=== PATIENT | female | born 1980 | race Caucasian/White ===

== ENCOUNTER 2024-07-14 21:06 | Emergency (ER) | payer OTHER, SELFPAY ==
--- NOTE | 2024-07-14 23:01 | ED.GENMED ---
History of Present Illness
General
Chief Complaint: Skin Problem
Time Seen by Provider: 07/14/24 22:09
History of Present Illness
History of Present Illness:
43-year-old female without significant past medical history presenting for concern of abscess. Patient reports a few days ago she noticed what she thought was a pimple at her left axillary region. She tried to pop it and since has grown in size
and is now red and swollen. Denies fever or systemic symptoms. Notes that it has been draining a little, purulent. Denies history of abscesses/skin infections in the past. Denies additional acute medical complaints
Phy Exam
Physical Exam
Physical Exam:
General: Well-appearing, no clinical signs of dehydration, nontoxic and in no acute distress
HEENT: protecting airway
Neck: appears supple
CV: Normal heart rate
Resp: No accessory muscle use, no increased work of breathing
Abd: No distention
Extremities: No deformities, no swelling
Neuro: alert, no focal neurologic deficit
: deferred
Rectal: deferred
Psych: Normal affect
Skin: Abscess at the mid axillary region, below the axilla, on the left side. Fluctuant and indurated. Surrounding cellulitis
Course
Orders/Labs/Results
Orders:
Orders
07/14/24 23:04
Cephalexin Monohydrate [Keflex] 500 mg PO NOW STA
Sulfamethox./Trimethoprim Ds [Bactrim Ds 800 mg/160 mg] 1 tablet PO NOW STA
Vital Signs
Initial and Last Documented VS:
Initial Vital Signs
Temp Pulse Resp Pulse Ox
98.0 F 89 18 100
07/14/24 21:09 07/14/24 21:09 07/14/24 21:09 07/14/24 21:09
Last Documented Vital Signs
Temp Pulse Resp BP Pulse Ox
98.0 F 89 18 120/85 97
07/14/24 21:09 07/14/24 23:20 07/14/24 23:20 07/14/24 23:22 07/14/24 23:20
Procedures
Incision/Drainage/Joint Aspiration
Left Lateral Distal Chest:
Anethesia: 1% Lidocaine
Preparation: cleaned with alcohol wipe
Type of procedure: incise and drain
Nature of site: abscess
Description of abscess: greater than 3cm (5 cm)
Loculations broken up: Yes
How much fluid was obtained?: small amount
Fluid description: purulent
Treatment: left open for drainage
MDM/Problems Addressed
MDM/Problems Addressed:
43-year-old female presenting for concern of abscess. Vital signs are normal.
On exam, patient is well-appearing, no acute distress or discomfort, nontoxic. Exam appears consistent with acute abscess. There is cellulitis surrounding the abscess. Incision and drainage performed. Please see procedure note. Will place on
antibiotics given cellulitic component. Plan for discharge with outpatient follow-up. Return precautions discussed and patient verbalized understanding
*Critical Care Note
Total Time (30-74mins, 75-104mins- exclusive of procedures): Not Applicable
ED Attending Note
-
Portions of this chart may have been created with voice recognition software.� Occasional wrong word or��sound alike� substitutions may have occurred due to the inherent limitations of voice recognition software.
Discharge Plan
Departure
Patient Disposition: Home (Routine Discharge)
Date of Disposition: 07/14/24
Time of Disposition: 23:08
Patient with high blood pressure during this ER visit?: No
Condition: Good
Discharge Problem:
Abscess or cellulitis of chest wall
Instructions: Cellulitis (Skin Infection), Adult (DC), Skin Abscess
Prescriptions:
New
cephalexin 500 mg capsule
500 mg PO QID 5 Days Qty: 20 0RF
sulfamethoxazole-trimethoprim [Bactrim DS] 800-160 mg tablet
1 tab PO BID 5 Days Qty: 10 0RF
Referrals:
UNKNOWN - PT DOES,NOT KNOW [Family Provider] -
Activity Restrictions/Additional Instructions:
You were seen in the emergency department for an abscess.
Your abscess was drained and you were started on antibiotics.
Please follow-up closely with your primary care physician for wound reassessment in 3 to 5 days.
Return to the emergency department for any worsening of your symptoms including increased swelling or redness of the skin, or any development of chest pain, difficulty breathing, abdominal pain with persistent vomiting and inability to tolerate food
or liquid by mouth (concern for dehydration), weakness, headache or confusion, fever greater than 100.4, or any additional symptoms that are concerning to you.
Thank you for choosing [facility].
Interventions
Interventions:
*Risk Screen - Suicide Last Done: 07/14/24 22:45
*General Assessment Last Done: 07/14/24 23:15
*Neglect/Abuse Screening Last Done: 07/14/24 22:45
ED- Fall Risk Assessment Last Done: 07/14/24 23:15
*ED COVID-19 Vaccine History Last Done: 07/14/24 22:45
*Nursing Disposition Last Done: 07/14/24 23:20
ED-Skin Assessment Last Done: 07/14/24 21:50
Discharge Date and Time
Discharge Date/Time: 07/14/24 23:20
Print Language: PASHTO
[2024-07-14] MEDS: BACTRIM DS 800 MG/160 MG 1 TABLET PO (23:17)
[2024-07-14] MEDS: KEFLEX 500 MG PO (23:17)
[2024-07-14 23:20] VITALS: BP 120/85
[2024-07-14 23:22] VITALS: BP 120/85
== END 2024-07-14 23:20 | disposition home or self-care (01) ==
LOC: EMR 21:06
PROVIDERS: EMERGENCY PHYSICIAN Student in an Organized Health Care Education/Training Program
DX: L03.313 Cellulitis of chest wall (principal)
CPT/HCPCS: 99282; 10060